=== PATIENT | male | born 1970 | race Caucasian/White ===

== ENCOUNTER 2025-05-20 19:34 | Inpatient (IN) | payer OTHER, SELFPAY ==
[2025-05-20] VITALS (9 sets, daily range): BP systolic 98–121; BP diastolic 60–84; PULSE 106–126; RESP 18–24; TEMP 36.5–38.7; O2SAT 95–97; BMI 30.9
--- NOTE | ~2025-05-20 | XR_ITS ---
CLINICAL HISTORY: pain 2 view chest x-ray Comparison: None provided Findings: No consolidation or effusion. Normal size heart. No acute fracture. IMPRESSION: 1. No acute findings. This document has been electronically signed by: Alvarado Cunha MD on 05/20/2025 21:21:01
--- NOTE | ~2025-05-20 | CT_ITS ---
CLINICAL HISTORY: hematuria, uti r o bladder mass, known prostate ca CT abdomen and pelvis with contrast Comparison: None provided Findings: Linear atelectasis at lung bases. The gallbladder and solid organs are within normal limits. No renal stones. No bowel obstruction, pneumoperitoneum, or pneumatosis. Moderate stool. Mesenteric vessels patent. Numerous small lymph nodes throughout the retroperitoneum. Small left inguinal hernia contains fat without induration. Prostatomegaly. Partially decompressed urinary bladder is unremarkable with no urothelial lesions. Normal appendix. No acute fractures or pathologic bone lesions. Left iliac crest bone excrescence, likely sequela of a prior injury. Mild to moderate lumbar degenerative spondylosis most evident L4-S1. IMPRESSION: 1. Multiple small retroperitoneal lymph nodes are nonspecific. These could be benign or malignant given the history of prostate cancer. 2. Prostatomegaly with unremarkable partially decompressed urinary bladder. 3. Small left inguinal hernia contains fat without induration. This document has been electronically signed by: Nava Marroquin MD on 05/20/2025 23:54:47
--- NOTE | 2025-05-20 19:43 | ED.GENADULT ---
HPI - General Adult General Chief complaint: Urogenital-Male Stated complaint: abn labs from [facility] Time Seen by Provider: 05/20/25 20:57 Source: patient and family Mode of arrival: ambulatory Limitations: no limitations History of Present Illness ED Provider: Dr. Elif Kendall HPI narrative: Patient comes to the emergency room complaining of hematuria and feeling weak. Patient states that last time he had very violent chills. According to the patient, his they have [id number] UTI test strips and it was positive. They went to urgent care, and due to the hematuria, there was sent to the emergency room. Patient states that he does have history of prostate cancer. Patient has not started any treatment yet. Patient unaware of any other urologic conditions. Patient states it is the 1st time that he has blood in the urine. Patient denies abdominal pain flank pain. Related Data Allergies Allergy/AdvReac Type Severity Reaction Status Date / Time No Known Allergies Allergy Verified 05/20/25 19:46 Review of Systems Review of Systems: Constitutional : No Weight loss, complaining of fever and chills No Night Sweats, No Fatigue, No Malaise ENT/Mouth : No Hearing loss, No Ear Pain, No Nasal Congestion, No Sinus Pain, No Hoarseness, No sore throat, No Rhinorrhea, No Swallowing Difficulty Eyes: No Eye Pain, No Swelling, No Redness, No Foreign Body, No Discharge, No Vision Changes Cardiovascular : No Chest Pain, No SOB, No Dyspnea on Exertion, No Orthopnea, No Edema, No Palpitations Respiratory : No Cough, No Sputum, No Wheezing, No Smoke Exposure, No Dyspnea Gastrointestinal : No Nausea, No Vomiting, No Diarrhea, No Constipation, No abdominal Pain, No Hematochezia, No Melena Genitourinary : no irregular bleeding, No Dysuria, No Urinary Frequency, complaining of Hematuria, No Urinary Incontinence, complaining of Urgency, No Flank Pain, No Urinary Flow Changes, No Hesitancy Musculoskeletal : No joint pain, No Myalgias, No Joint Swelling Skin : No Skin Lesions, No rash Neuro : No Weakness, No Numbness, No Paresthesias, No Loss of Consciousness, No Dizziness, No Headache Psych : No Anxiety/Panic, No Depression, No SI/HI/AH/VH, No Social Issues, Heme/Lymph: No Bruising, No Bleeding,No Lymphadenopathy Endocrine : No Polyuria, No Polydipsia, No Temperature Intolerance [facility] Past Medical History Medical History (Updated 05/21/25 @ 00:15 by Elif Kendall MD) Prostate cancer Social History Social History Smoked in Last 30 Days: No Use of substances other than those prescribed or required for medical reasons: No Advance Directives: No Advance Directives Information Provided: No Physical Exam ED Exam Exam: Appearance: Alert. Oriented X3. No acute distress. Eyes: Pupils equal, round and reactive to light. ENT: Pharynx normal. Neck: Normal inspection. Neck supple. No lymph nodes noted. No crepitus CVS: Normal heart rate and rhythm. Pulses normal. Normal S1 and S2 Respiratory: No respiratory distress. Breath sounds normal. No Wheezing. No rales Abdomen: Soft and nontender. No rigidity. No distention. No CVA tenderness Skin: Skin warm and dry. Normal skin color. Normal skin turgor. Extremities: No lower extremity edema. No Lacerations. No Rash Neuro: Oriented X 3. No motor deficit. No sensory deficit. Moving all extremities. No slurred speech. CN 2 through 12 grossly intact Psych: calm, cooperative, normal affect Vital Signs: Vital Signs - 24 hr 05/20/25 19:42 05/20/25 21:07 05/20/25 21:13 Temperature 98.2 F 101.7 F H Pulse Rate 126 H 118 H Pulse Rate [Automated] 112 H Respiratory Rate 18 24 H Blood Pressure 114/84 121/82 Pulse Oximetry 97 96 Oxygen Delivery Method Room Air Room Air 05/20/25 21:48 05/20/25 22:24 05/20/25 22:51 Temperature 100.0 F 98.3 F Pulse Rate 108 H 106 H Pulse Rate [Automated] Respiratory Rate 22 H 20 Blood Pressure 121/82 98/60 Pulse Oximetry 96 97 Oxygen Delivery Method Room Air Room Air 05/20/25 23:05 05/20/25 23:09 05/20/25 23:46 Temperature 97.7 F Pulse Rate 106 H Pulse Rate [Automated] Respiratory Rate 20 Blood Pressure 108/62 111/72 117/74 Pulse Oximetry 95 95 Oxygen Delivery Method Room Air Room Air BMI result Body Mass Index 30.9 Course Course Course Narrative: RME, this is a rapid medical exam performed by Jesus Manuel Jain please refer to primary provider for complete H&P- 55 year old male with history of diabetes, prostate cancer presents for evaluation of chills starting last night, body aches, fatigue, abdominal pain, urinary retention. He reports he has been peeing frequently but only little bit at a time. He has not had any documented fevers. He went to urgent care today and was sent here. His heart rate is as high as 130. Blood pressure was 114/84, in triage she has temp was 98.2? orally. Plan for labs, urinalysis, bladder scan Medications Administered Discontinued Medications Generic Name Dose Route Start Last Admin Trade Name Lisa PRN Reason Stop Dose Admin Acetaminophen 975 mg 05/20/25 21:21 05/20/25 21:45 Acetaminophen 325 Mg Tablet PO 05/20/25 21:22 975 mg ONCE ONE Administration Sodium Chloride 3,018 mls @ 3,018 mls/hr 05/20/25 20:50 05/20/25 22:30 Ns 30 ml/kg infuse over 1 hr (3018 ml) 05/20/25 21:49 Infused IV Infusion .Q1H STA Levofloxacin 500 mg in 100 mls @ 100 mls/hr 05/20/25 20:57 05/20/25 22:03 Levaquin IV 05/20/25 21:56 Infused ONCE ONE Infusion Iohexol 85 ml 05/20/25 23:21 05/20/25 23:22 Iohexol 350 Mg/Ml 100 Ml Infus..Btl IV 05/20/25 23:22 85 ml ONCE ONE Administration Medical Decision Making Medical Decision Making MDM Narrative: I was informed by the patient's nurse that the patient has been brought to the main ED, patient's white blood cell count in the 30s, patient known to have a UTI. Patient's nurse to started the sepsis protocol a few minutes ago at 20:52 Patient's nurse started IV fluids based on actual weight No patient receiving antibiotics. My interpretation of labs: Patient's white blood cell count 34.5, chemistry does not show any acute electrolyte abnormality. Glucose 227, lactic acid 2.8, lipase normal, normal LFTs Urine is positive for UTI Serology negative for COVID and influenza On physical exam, patient does not have any flank pain or back pain CT scan of the abdomen pelvis shows small retroperitoneal lymph nodes, nonspecific, benign versus malignant given the history of prostate cancer. No obstruction FOCUS exam performed at 22:52 I discussed the patient with Dr. Bimringham, patient being admitted Differential Diagnosis Differential Diagnoses: The differential diagnosis associated with the presentation includes (Bladder malignancy, UTI, pyelonephritis) Admission/Observation Consideration of admission/observation: Escalation of care including admission/observation considered Consult Healthcare Provider Management of the patient was discussed with: Hospitalist Lab Data MDM Lab Attestation statement: I reviewed the patient's lab results. 05/20/25 20:26 05/20/25 20:26 Labs: Lab Results 05/20/25 05/20/25 Range/Units 20:26 22:39 WBC 34.5 H* (4.8-10.8) X10*3/uL RBC 5.16 (4.60-5.80) X10*6/uL Hgb 15.1 (14.0-18.0) g/dl Hct 44.1 (42.0-52.0) % MCV 85.5 (80.0-98.0) fL MCH 29.3 (27.0-33.0) pg MCHC 34.2 (31.0-36.0) g/dl RDW 12.5 (11.0-16.0) % Plt Count 223 (160-400) X10*3/uL MPV 9.2 L (9.4-12.4) fL Immature Gran % (Auto) 1.2 H (0.0-0.4) % Neut % (Auto) 87.2 H (45-73) % Lymph % (Auto) 3.5 L (20-40) % [place] % (Auto) 7.8 (2-11) % Eos % (Auto) 0.0 (0-4) % Baso % (Auto) 0.3 (0-2) % Lymph # (Auto) 1.2 (1.2-4.9) X10*3/uL [place] # (Auto) 2.7 H (0.1-1.2) X10*3/uL Eos # (Auto) 0.0 (0.0-0.4) X10*3/uL Baso # (Auto) 0.1 (0.0-0.2) X10*3/uL Abs Immat Gran (auto) 0.40 H (0.00-0.03) X10*3/uL Absolute Neuts (auto) 30.1 H (2.0-8.3) x10*3/uL Absolute Nucleated RBC 0.000 (0.0-0.012) X10*3/uL Nucleated RBC % (auto) 0.0 (0.0-0.2) /100WBC Sodium 135 (135-145) mmol/L Potassium 4.1 (3.3-5.1) mmol/L Chloride 102 (96-108) mmol/L Carbon Dioxide 23 (22-29) mmol/L Anion Gap 14 (12-20) BUN 16 (9-16) mg/dL Creatinine 0.96 (0.5-1.4) mg/dL Estim Creat Clear Calc 102.5 Estimated GFR > 60 Random Glucose 227 H (60-115) mg/dL Lactic Acid 2.8 H* (0.5-2.0) mmol/L Lactic Acid F/U @ 2Hr 3.1 H* (0.5-2.0) mmol/L Calcium 9.4 (8.4-10.2) mg/dL Total Bilirubin 0.7 (0.0-1.0) mg/dL AST 25 (5-37) U/L ALT 49 H (0-40) U/L Alkaline Phosphatase 62 (39-117) U/L Total Protein 7.4 (6.5-8.0) g/dL Albumin 4.6 (3.5-5.0) g/dL Lipase 19 (8-78) U/L Urine Color Dark Yellow Urine Appearance Cloudy Urine pH 5.5 (5.0-9.0) Ur Specific [place] >= 1.030 H (1.005-1.025) Urine Protein 100 (2+) H (Neg-Trace) mg/dL Urine Glucose (UA) 250 H (Negative) mg/dL Urine Ketones Trace (Negative) mg/dL Urine Blood Large (3+) H (Negative) Urine Nitrite Positive H (Negative) Ur Leukocyte Esterase Moderate (2+) H (Negative) Urine RBC 11-20 H (0-2) /HPF Urine WBC >50 H (0-5) /HPF Ur Squamous Epith Cells 0-2 (0-2) /HPF Urine Bacteria 4+ (None Seen) Hyaline Casts 0-2 (0-2) /LPF COVID-19 (ALIVIA) Negative (Negative) COVID-19 Clin Com See Note Influenza Type A (BUFFY) Negative (Negative) Influenza Type B (BUFFY) Negative (Negative) Influenza A & B Note N Independent Interpretation I performed an independent interpretation of an: CT Scan Radiology Impression Discussion of test interpretation with radiology: I have reviewed the radiologist's reading. Radiologist Impression: Findings: Linear atelectasis at lung bases. The gallbladder and solid organs are within normal limits. No renal stones. No bowel obstruction, pneumoperitoneum, or pneumatosis. Moderate stool. Mesenteric vessels patent. Numerous small lymph nodes throughout the retroperitoneum. Small left inguinal hernia contains fat without induration. Prostatomegaly. Partially decompressed urinary bladder is unremarkable with no urothelial lesions. Normal appendix. No acute fractures or pathologic bone lesions. Left iliac crest bone excrescence, likely sequela of a prior injury. Mild to moderate lumbar degenerative spondylosis most evident L4-S1. IMPRESSION: 1. Multiple small retroperitoneal lymph nodes are nonspecific. These could be benign or malignant given the history of prostate cancer. 2. Prostatomegaly with unremarkable partially decompressed urinary bladder. 3. Small left inguinal hernia contains fat without induratio Independent Historian Clinical information obtained from an independent historian. History obtained from or confirmed by: Spouse Chronic Conditions Patient?s care impacted by: Other (Prostate cancer) Critical Care Time Critical Care Time Critical Care Time: Yes Total Critical Care Time: 60 Attestation: I have personally provided critical care time. Time includes review of lab data, radiology results, discussion with consultants, and monitoring for potential decompensation. Intervention performed as documented. Discharge Plan Discharge Clinical Impression: Sepsis secondary to UTI Patient Disposition: Admitted As Inpatient Print Language: Malay
--- NOTE | 2025-05-20 19:47 | ECG_ITS ---
Test Reason : TACHY Blood Pressure : */* mmHG Vent. Rate : 128 BPM Atrial Rate : 128 BPM P-R Int : 166 ms QRS Dur : 70 ms QT Int : 266 ms P-R-T Axes : 57 115 55 degrees QTcB Int : 388 ms Sinus tachycardia Right axis deviation Nonspecific ST abnormality Abnormal ECG No previous ECGs available Referred By: Ham Jain Electronically Signed By: LEDY WOO MD
[2025-05-20 20:35] LABS: MANUAL DIFF FLAG NO
[2025-05-20 20:37] LABS: Hematocrit 44.1 % (42.0-52.0); Hemoglobin 15.1 g/dl (14.0-18.0); Imm Gran Abs Auto 0.40 X10*3/uL (0.00-0.03); Imm Gran Pct Auto 1.2 % (0.0-0.4); Lymphocytes Absolute Auto 1.2 X10*3/uL (1.2-4.9); Mean Corpuscular HGB Conc 34.2 g/dl (31.0-36.0); Mean Corpuscular Hemoglobin 29.3 pg (27.0-33.0); Mean Corpuscular Volume 85.5 fL (80.0-98.0); NRBC Abs Auto 0.000 X10*3/uL (0.0-0.012); NRBC Pct Auto 0.0 /100WBC (0.0-0.2); Platelet Count 223 X10*3/uL (160-400); Red Blood Count 5.16 X10*6/uL (4.60-5.80); SCAN SMEAR FLAG 1
[2025-05-20 20:38] LABS: Appearance Urine Cloudy; Glucose Urine UA 250 mg/dL (Negative); PH 5.5 (5.0-9.0); Specific Gravity - Urine >= 1.030 (1.005-1.025); UMIC TRIGGER UACC YES
[2025-05-20 20:39] LABS: White Blood Count 34.5 X10*3/uL (4.8-10.8)
[2025-05-20 20:41] LABS: UACC Culture Trigger YES
[2025-05-20 20:53] LABS: COVID-19 Test Negative (Negative); IDNOW Serial# 55D5AD1C
[2025-05-20 20:54] LABS: IDNOW Serial# 58CA691E; Influenza A & B2 Note N; Influenza B2 Negative (Negative)
[2025-05-20 20:58] LABS: Alanine Aminotransferase 49 U/L (0-40); Albumin Level 4.6 g/dL (3.5-5.0); Alkaline Phosphatase 62 U/L (39-117); Anion Gap 14 (12-20); Aspartate Amino Transferase 25 U/L (5-37); Blood Urea Nitrogen 16 mg/dL (9-16); Calcium 9.4 mg/dL (8.4-10.2); Carbon Dioxide 23 mmol/L (22-29); Chloride 102 mmol/L (96-108); Creatinine Clr Calc Pharmacy 102.5; Estimated Glomerular Filt Rate > 60; Lipase 19 U/L (8-78); Potassium 4.1 mmol/L (3.3-5.1); Sodium 135 mmol/L (135-145); Total Protein 7.4 g/dL (6.5-8.0)
[2025-05-20] MEDS: SODIUM CHLORIDE 3018 ML IV (21:00)
--- NOTE | 2025-05-20 21:16 | HO.NURTONUR ---
Pt c/o sudden onset chills last night assoc w/ diff urination, went to Urgent for eval and was told he had a urinary infection and sent to ED for eval. Pt arrived, sat in WR for approx 1 hour, pt presented as sepsis @ 2048. Pt was found to be tachy and febrile w/ wbc>34 and initial lactate 2.8. Pt denies any c/o n/v/d and is independent w/ ADL's
--- OUTSIDE RECORDS SUMMARY | 2025-05-20 21:50 | XMS_ITS ---
[facility] Name [facility] Care Team Organization Name Specialty Phone Email Start Date End Da te [facility] DONAL RUST Primary Care 06/07/2022 4
--- OUTSIDE RECORDS SUMMARY | 2025-05-20 21:50 | XMS_ITS | Clinical Summary ---
Author Organization [facility] [address] [place] [address] [place] [phone] Phone Care Team Providers Care Stereotype Caster Name Role Phone Toro Holman MD Primary Care Provider [phone] Allergies No known active allergies Medications blood sugar diagnostic (FreeStyle Lite Strips) test strip Test tid 01/13/2023 Active blood-glucose meter kit Test tid 01/13/2023 Active FREESTYLE LANCETS MISC Test tid 01/13/2023 Active tadalafiL (CIALIS) 20 mg tablet Take 1 tablet (20 mg total) by mouth. 02/25/2021 Active sildenafiL (VIAGRA) 100 mg tablet Take 1 tablet (100 mg total) by mouth if needed for erectile dysfunction. 10/19/2020 Active metFORMIN (GLUCOPHAGE) 500 mg tablet Take 2 tablets (1,000 mg total) by mouth 2 (two) times a day with meals. 360 tablet 1 11/11/2024 Active celecoxib (CeleBREX) 200 mg capsule Take 1 capsule (200 mg total) by mouth 2 (two) times a day. Active semaglutide (OZEMPIC) 0.25 mg or 0.5 mg (2 mg/3 mL) injection penIndications: Type 2 diabetes mellitus with other specified complication, without long-term current use of insulin ([facility] V24, [facility] V28) Inject 0.5 mg under the skin every 7 (seven) days. 6 mL 1 03/11/2025 Active Active Problems Problem Noted Date Diagnosed Date Primary osteoarthritis of right knee 06/01/2018 Controlled type 2 diabetes m ellitus without complication, without long-term current use of insulin ([facility] V24, [facility] V28) 03/05/2018 Essential hypertension 10/05/2017 Primary osteoarthritis of both knees 08/04/2017 Overview (05/16/2024): Last Assessment & Plan: Depo Medrol 80 mg injection to bilateral knees on August 04, 2017 Hyperlipidemia 10/06/2015 Cervicalgia 07/08/2010 Displacement of cervical int ervertebral disc without myelopathy 07/08/2010 Radiculitis, cervical 07/08/2010 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 Overview (05/16/2024): IMO update Encounters Date Type Department Care Team Description 03/11/2025 5:00 PM EDT Office Visit Adult Medicine [address] [phone] Shy Carlin PA Hyperlipidemia, unspecified hyperlipidemia type (Primary Dx); Type 2 diabetes mellitus with other specified complication, without long-term current use of insulin ([facility] V24, [facility] V28); Prostate cancer ([facility] V24, [facility] V28) from Last 3 Months Immunizations Immunization Administration Dates Next Due Pneumococcal polysaccharide 23 valent (Pneumovax 23) 2yo and older 03/05/2018 Td Tetanus diptheria (Tdvax) 7yo and older 12/29 Tdap Tetanus diptheria acell ular pertussis (Boostrix; Adacel) 7yo and older 01/13/2023,06/09/2011 Surgical History Surgery Date Site/Laterality Comments FLEXIBLE SIGMOIDOSCOPY 05/26/08 PROCEDURE: MO SIGMOIDOSCOPY FLX DX W/COLLJ SPEC BR/WA IF PFRMD; COMMENT: hemorrhoids Medical History Medical History Date Comments Psychosexual dysfunction, unspecified 04/13/2006 DX:Psychosexual dysfunction, unspecified Radiculitis, cervical 07/08/2010 DX:Radicul itis, cervical Displacement of cervical intervertebral disc without myelopathy 07/08/2010 DX:Displacement of cervical intervertebral disc without myelopathy Cervicalgia 07/08/2010 DX:Cervicalgia Type II diabetes mellitus, uncontrolled 10/06/2015 DX:Type II diabetes mellitus , uncontrolled Hyperlipidemia 10/06/2015 DX:Hyperlipidemi a Essential hypertension 10/05/2017 DX:Essent ial hypertension Actinic keratosis, hx of DX:Acti kerri keratosis, hx of Family History Medical History Relation Name Comments Hypertension Brother Colon cancer Father Stroke Mother's side Blindness Neg Hx Cataracts Neg Hx Glaucoma Neg Hx Macular degeneration Neg Hx Strabismus Neg Hx Relation Name Status Comments Brother Father Mother's side Social History Tobacco Use Types Packs/Day Years Used Date Smoking Tobacco: Former Cigarettes Q uit: 10/14/2013 Smokeless Tobacco: Current Tobacco Cessation:Ready to Q uit: Not Asked; Counseling Given: Not Answered Alcohol Use Standard Drinks/Week Comments No 0 (1 standard drink = 0.6 oz pur e alcohol) Housing Instability Answer Date Recorde d Are you worried that in the next 2 months you may not have stable housing? No 09/13/2024 Food Access & Nutrition Answer Date Rec orded Do you have access to a vari ety of food including fruits and vegetables? Yes 09/13/2024 Access to Healthcare Answer Date Record ed Within the last 3 months, jaquan shin many times did you visit the emergency department for your medical care? 0 09/13/2024 Health Literacy Answer Date Recorded How often do you need to hav e someone help you when you read instructions, pamphlets, or other written material from your doctor or pharmacy? Never 09/13/2024 Caregiver: How often do you need to have someone help you when you read instructions, pamphlets, or other written material from your doctor or pharmacy? Not on file 09/13/2024 Financial Risk Answer Date Recorded How hard is it for you to pa y for the very basics like food, housing, medical care, and air conditioning / heating? Not very hard 09/13/2024 Transportation Answer Date Recorded Has the lack of transportati on kept you from meetings, work, or from getting things needed for daily living? No Has the lack of transportati on kept you from medical appointments or from getting medications? No 09/13/2024 Social Isolation Answer Date Recorded How often do you feel lonely or isolated from th ose around you? Never 09/13/2024 Food Risk Answer Date Recorded Within the past 12 months we worried whether our food would run out before we got money to buy more. Never true 09/13/2024 Within the past 12 months th e food we bought just didn't last and we didn't have money to get more. Never true 09/13/2024 Dependent Care Answer Date Recorded Do you need help finding or paying for care for your loved ones. For example, child care lead teacher or elderly care for an older adult? No 09/13/2024 Education Answer Date Recorded Do you think completing more education or training, like finishing a GED, going to college, or learning a trade, would be helpful for you? No 09/13/2024 Employment and Income Answer Date Recor ded During the last four weeks, have you been actively looking for work? No 09/13/2024 Living Situation Answer Date Recorded What is your living situation? 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 Not on file Not on file Obstetrics History Last Filed Vital Signs Vital Sign Reading Time Taken Comments Blood Pressure 110/74 03/11/2025 4:39 PM EDT Pulse 96 03/11/2025 4:39 PM EDT Temperature 35.9 C (96.7 F) 03/11/2025 4:39 PM EDT Respiratory Rate 16 03/11/2025 4:39 PM EDT Oxygen Saturation 95% 03/11/2025 4:39 PM EDT Inhaled Oxygen Concentration - - Weight 103 kg (226 lb 1.6 oz) 03/11/2025 4:39 PM EDT Height 180.3 cm (5' 10.98 ) 03/11/2025 4:39 PM E DT Body Mass Index 31.55 03/11/2025 4:39 PM EDT Plan of Treatment Upcoming Encounters Date Type Department Care Team (Late st Contact Info) Description 09/16/2025 5:00 PM EST Office Visit Adult Medicine [address] [phone] Shy Carlin PA [address] [place] [address] Health Maintenance Due Date Last Done Comments Diabetes: Annual Retina Eye Exam 01/26/1978 Hepatitis B Vaccines (1 of 3 - 19+ 3-dose series) 01/26/1987 Zoster Vaccines (1 of 2) 01/26/1987 Pneumococcal Vaccine: 50+ Years (2 of 2 - PCV) 03/05/2019 03/05/2018 HIV Screening 06/29/2022 Diabetes: Annual Urine Albumin-Creatinine Ratio (uACR) 01/11/2024 01/10/2023 COVID-19 Vaccine ( season) 2025 12/21/2021, 10/10/2020, 09/12/2020 Diabetes: Blood Sugar Control Test (HGBA1C) 04/17/2025 10/15/2024, 05/05/2023 Diabetes: Annual Foot Exam 09/10/2025 09/10/2024 Social Influencers of Health Screening 09/13/2025 09/13/2024, 09/10/2024 Diabetes: Annual GFR (Glomerular Filtration Rate) 10/15/2025 10/15/2024, 01/10/2023 Hypertension/CHF/CAD Annual BMP Blood Test 10/15/2025 10/15/2024, 01/10/2023 Cholesterol Screening (Lipid Panel) 10/15/2029 10/15/2024, 01/10/2023 DTaP,Tdap,and Td Vaccines (5 - Td or Tdap) 01/13/2033 01/13/2023, 08/26/2022, 06/09/2011, Additional history exists Colorectal Cancer Screening: Colonoscopy 12/18/2033 12/19/2023 RSV Immunization Adult Patients (1 - 1-dose 75+ series) 01/26/2043 Hepatitis C Screening Completed 10/05/2015 Depression Screening Completed 09/13/2024 HIB Vaccines Aged Out No longer eligi ble based on patient's age to complete this topic HPV Vaccines Aged Out No longer eligi ble based on patient's age to complete this topic Hepatitis A Vaccines Aged Out No long er eligible based on patient's age to complete this topic IPV Vaccines Aged Out No longer eligi ble based on patient's age to complete this topic Influenza Vaccine Discontinued MMR Vaccines Aged Out No longer eligi ble based on patient's age to complete this topic Meningococcal ACWY Vaccine Aged Out N o longer eligible based on patient's age to complete this topic Meningococcal B Vaccine Aged Out No l onger eligible based on patient's age to complete this topic RSV Immunization Patients Under 20 months Aged Out No longer eligible based on patient's age to complete this topic Varicella Vaccines Aged Out No longer eligible based on patient's age to complete this topic Procedures Procedure Name Priority Date/Time Associated Diagnosis Comments BASIC METABOLIC PANEL Routine 10/15/2024 2:49 PM EDT Routine history and physical examination of adult HEMOGLOBIN A1C Routine 10/15/2024 2:49 PM EDT Controlled type 2 diabetes mellitus without complication, without long-term current use of insulin ([facility] V24, [facility] V28) LIPID PANEL WITH REFLEX TO DIRECT LDL Routine 10/15/2024 2:49 PM EDT Routine history and physical examination of adult Hyperlipidemia, unspecified hyperlipidemia type COLONOSCOPY Routine 12/19/2023 URINE ALBUMIN CREATININE RATIO Routine 01/10/2023 HEPATITIS C SCREENING Routine 10/05/2015 from Last 3 Months or Most Recently Relevant to Health Maintenance Results * (ABNORMAL) Lipid panel with reflex to direct LDL (10/15/2024 2:49 PM EDT) Cholesterol 205(H) 0 - 200 mg/dL LAB CHEMISTRY METHOD 10/15/2024 6:[address] [facility] Triglycerides 487(H) 0 - 150 mg/dL LAB CHEMISTRY METHOD 10/15/2024 6:[address] [facility] HDL 29(L) >=40 mg/dL LAB CHEMISTRY METHOD 10/15/2024 6:[address] [facility] LDL Calculated 79 0 - 100 mg/dL LAB CHEMISTRY METHOD 10/15/2024 6:[address] [facility] Comment:Unable to calculate when triglycerides >400 mg/dL. VLDL Cholesterol Keanu 97.4 mg/dL LAB CHEMISTRY METHOD 10/15/2024 6:[address] [facility] Comment:Unable to calculate when triglycerides >400 mg/dL. Non HDL Chol. (LDL+VLDL) 176(H) <145 mg/dL LAB CHEMISTRY METHOD 10/15/2024 6:[address] [facility] Comment:Unable to calculate when triglycerides >400 mg/dL. Chol/HDL Ratio 7.1(H) 0.0 - 4.4 LAB CHEMISTRY METHOD 10/15/2024 6:[address] [facility] Blood Venous blood specimen / Unknown Venipuncture / Unknown 10/15/2024 2:49 PM EDT 10/15/2024 2:49 PM EDT Shy GUEVARA LAB BLOOD ORDERABLES Fi nal Result Performing Organization Address City/[facility]/ZIP Co de Phone Number [facility] [address] [place] [address], [place] [phone] * (ABNORMAL) Hemoglobin A1c (10/15/2024 2:49 PM EDT) [facility] Signature Hemoglobin A1C 9.6(H) <6.5 % LAB CHEMISTRY METHOD 10/15/2024 8:[address] [facility] Mean Bld Glu Estim. 229 mg/dL LAB CHEMISTRY METHOD 10/15/2024 8:[address] [facility] Blood Venous blood specimen / Unknown Venipuncture / Unknown 10/15/2024 2:49 PM EDT 10/15/2024 2:49 PM EDT Shy GUEVARA LAB BLOOD ORDERABLES Fi nal Result Performing Organization Address City/[facility]/ZIP Co de Phone Number [facility] [address] [place] [address], [place] [phone] * (ABNORMAL) Basic metabolic panel (10/15/2024 2:49 PM EDT) Sodium 132(L) 133 - 145 mmol/L LAB CHEMISTRY METHOD 10/15/2024 6:56 PM [facility] Potassium 4.2 3.5 - 5.5 mmol/L LAB CHEMISTRY METHOD 10/15/2024 6:56 PM [facility] Chloride 99 96 - 110 mmol/L LAB CHEMISTRY METHOD 10/15/2024 6:56 PM [facility] CO2 27 21 - 32 mmol/L LAB CHEMISTRY METHOD 10/15/2024 6:56 PM [facility] Anion Gap 6 3 - 11 LAB CHEMISTRY METHOD 10/15/2024 6:56 PM [facility] Glucose 243(H) 70 - 100 mg/dL LAB CHEMISTRY METHOD 10/15/2024 6:56 PM [facility] BUN 21 5 - 25 mg/dL LAB CHEMISTRY METHOD 10/15/2024 6:56 PM [facility] Creatinine 1.08 0.70 - 1.30 mg/dL LAB CHEMISTRY METHOD 10/15/2024 6:56 PM [facility] eGFR 81 >=60 mL/min/1. 73m2 LAB CHEMISTRY METHOD 10/15/2024 6:56 PM [facility] Comment:Calculation based on the Chronic Kidney Disease Epidemiology Collaboration (CKD-EPI) equation refit without adjustment for race. BUN/Creatinine Ratio 19.4 LAB CHEMISTRY METHOD 10/15/2024 6:56 PM [facility] Calcium 9.2 8.5 - 10.5 mg/dL LAB CHEMISTRY METHOD 10/15/2024 6:56 PM [facility] Blood Venous blood specimen / Unknown Venipuncture / Unknown 10/15/2024 2:49 PM EDT 10/15/2024 2:49 PM EDT Shy GUEVARA LAB BLOOD ORDERABLES Fi nal Result [facility] [address] [place] [address], * Colonoscopy (12/19/2023) Colonoscopy no interpretation , abstracted Anatomical Region Laterality Modality Other Historical Provider HEALTH MAINTENANCE Final Result * Urine Albumin Creatinine Ratio (01/10/2023) Urine Albumin Creatinine Ratio abstracted Historical Provider HEALTH MAINTENANCE Final Result * Hepatitis C Screening (10/05/2015) Pathologist [facility] Hepatitis C Screening abstracted Historical Provider HEALTH MAINTENANCE Final Result from Last 3 Months or Most Recently Relevant to Health Maintenance Insurance [facility] [address] [place] [address] Care Teams Stereotype Caster Relationship Specialty Start Date End Date Toro Holman MD PCP - General 11/22/1997
--- OUTSIDE RECORDS SUMMARY | 2025-05-20 21:50 | XMS_ITS | Encounter Summary ---
Author Organization [facility] Address [address] [place] [address] Care Team Providers Care Lapeler Name Role Phone Toro Holman MD Primary Care Provider [phone] Encounter Details Date Type Department Care Team (Late st Contact Info) Description 12/31/2024 Lab Requisition [facility] [address] [facility] [place] [address] Feliciano Fulton MD [address] [place] [address] Elevated prostate specific antigen (PSA) Social History Tobacco Use Types Packs/Day Years Used Date Smoking Tobacco: Former Cigarettes Q uit: 10/14/2013 Smokeless Tobacco: Current Alcohol Use Standard Drinks/Week Comments No 0 [...] Record ed Within the last 3 months, ho w many times did you visit the emergency [...] care for your loved ones. For example, children's zoo caretaker or elderly care for an older adult? 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 Prostate, Left Middle [place] (Core Biopsy): - BENIGN PROSTATE TISSUE. B. Prostate, Left Lateral [place] (Core Biopsy): -PROSTATIC ACINAR ADENOCARCINOMA, CONVENTIONAL (USUAL) TYPE -Nicholas score (3+3)=6, Grade group 1 Total Number of Cores: 1 Number of Positive Cores: 1 Percentage of Prostatic Tissue Continuously Involved by Tumor: <5% C. Prostate, Left Middle Middle (Core Biopsy): - BENIGN PROSTATE TISSUE. D. Prostate, Left Lateral Middle (Core Biopsy): -PROSTATIC ACINAR ADENOCARCINOMA, CONVENTIONAL (USUAL) TYPE -[place] score (3+3)=6, Grade group 1 Total Number of Cores: 1 Number of Positive Cores: 1 Percentage of Prostatic Tissue Continuously Involved by Tumor: 5% E. Prostate, Left Middle Base (Core Biopsy): - BENIGN PROSTATE TISSUE. F. Prostate, Left Lateral Base (Core Biopsy): - BENIGN PROSTATE TISSUE. G. Prostate, Right Middle [place] (Core Biopsy): -PROSTATIC ACINAR ADENOCARCINOMA, CONVENTIONAL (USUAL) TYPE -Nicholas score (3+3)=6, Grade group 1 Total Number of Cores: 1 Number of Positive Cores: 1 Percentage of Prostatic Tissue Continuously Involved by Tumor: 10% H. Prostate, Right Lateral [place] (Core Biopsy): -PROSTATIC ACINAR ADENOCARCINOMA, CONVENTIONAL (USUAL) TYPE -Nicholas score (3+3)=6, Grade group 1 Total Number of Cores: 1 Number of Positive Cores: 1 Percentage of Prostatic Tissue Continuously Involved by Tumor: 5% I. Prostate, Right Middle Middle (Core Biopsy): -PROSTATIC ACINAR ADENOCARCINOMA, CONVENTIONAL (USUAL) TYPE -[place] score (3+3)=6, Grade group 1 Total Number of Cores: 1 Number of Positive Cores: 1 Percentage of Prostatic Tissue Discontinuously Involved by Tumor: 40% J. Prostate, Right Lateral Middle (Core Biopsy): -PROSTATIC ACINAR ADENOCARCINOMA, CONVENTIONAL (USUAL) TYPE -Nicholas score (3+3)=6, Grade group 1 Total Number of Cores: 1 Number of Positive Cores: 1 Percentage of Prostatic Tissue Continuously Involved by Tumor: 10% K. Prostate, Right Middle Base (Core Biopsy): -PROSTATIC ACINAR ADENOCARCINOMA, CONVENTIONAL (USUAL) TYPE -[place] score (3+3)=6, Grade group 1 Total Number of Cores: 1 Number of Positive Cores: 1 Percentage of Prostatic Tissue Continuously Involved by Tumor: 10% L. Prostate, Right Lateral Base (Core Biopsy): -PROSTATIC ACINAR ADENOCARCINOMA, CONVENTIONAL (USUAL) TYPE -[place] score (3+3)=6, Grade group 1 Total Number of Cores: 1 Number of Positive Cores: 1 Percentage of Prostatic Tissue Continuously Involved by Tumor: 55% M. Prostate, Right Transition Zone Lesion (Core Biopsy): -PROSTATIC ACINAR ADENOCARCINOMA, CONVENTIONAL (USUAL) TYPE -[place] score (3+3)=6, Grade group 1 Total Number of Cores: 3 Number of Positive Cores: 3 Percentage of Prostatic Tissue Continuously Involved by Tumor: 40, 55, 75% 01/06/2025 9:13 AM [facility] Clinical Information Elevated PSA PSA: 10.5 (11/13/24) [id number] 01/06/2025 9:13 AM [facility]) [facility] Gross Description A. Prostate, Left Mid [place] Biopsy: Received, properly labeled, are two H and E stained slides and two unstained slides. B. Prostate, Left Lat [place] Biopsy: Received, properly labeled, are two H and E stained slides and two unstained slides. C. Prostate, Left Mid Mid Biopsy: Received, properly labeled, are two H and E stained slides and two unstained slides. D. Prostate, Left Lat Mid Biopsy: Received, properly labeled, are two H and E stained slides and two unstained slides. E. Prostate, Left Mid Base Biopsy: Received, properly labeled, are two H and E stained slides and two unstained slides. F. Prostate, Left Lat Base Biopsy: Received, properly labeled, are two H and E stained slides and two unstained slides. G. Prostate, Right Mid [place] Biopsy: Received, properly labeled, are two H and E stained slides and two unstained slides. H. Prostate, Right Lat [place] Biopsy: Received, properly labeled, are two H and E stained slides and two unstained slides. I. Prostate, Right Mid Mid Biopsy: Received, properly labeled, are two H and E stained slides and two unstained slides. J. Prostate, Right Lat Mid Biopsy: Received, properly labeled, are two H and E stained slides and two unstained slides. K. Prostate, Right Mid Base Biopsy: Received, properly labeled, are two H and E stained slides and two unstained slides. L. Prostate, Right Lat Base Biopsy: Received, properly labeled, are two H and E stained slides and two unstained slides. M. Prostate, Right Transition Zone Lesion Biopsy: Received, properly labeled, are two H and E stained slides and two unstained slides. /al 01/06/2025 9:[address] [facility] Disclaimer Unless otherwise specified, all tissue is 10% NB formalin fixed and paraffin embedded. Technical pathology services provided by [facility] at [address] [place] [address] [address], [place] [address] (CLIA #[id number]/Louisa Hatfield MD, Clay Artisan) 01/06/2025 9:[address] [facility] Tissue Prostate / Unknown 12/31/20242024 3:13 PM EDT Tissue specimen (specimen) Prostate / Unknown 12/31/2024 12/31/2024 3: 17 PM EDT Tissue specimen (specimen) Prostate / Unknown 12/31/2024 12/31/2024 3: 17 PM EDT Tissue specimen (specimen) Prostate / Unknown 12/31/2024 12/31/2024 3: 17 PM EDT Tissue specimen (specimen) Prostate / Unknown 12/31/2024 12/31/2024 3: 17 PM EDT Tissue specimen (specimen) Prostate / Unknown 12/31/2024 12/31/2024 3: 17 PM EDT Tissue specimen (specimen) Prostate / Unknown 12/31/2024 12/31/2024 3: 17 PM EDT Tissue specimen (specimen) Prostate / Unknown 12/31/2024 12/31/2024 3: 17 PM EDT Tissue specimen (specimen) Prostate / Unknown 12/31/2024 12/31/2024 3: 17 PM EDT Tissue specimen (specimen) Prostate / Unknown 12/31/2024 12/31/2024 3: 17 PM EDT Tissue specimen (specimen) Prostate / Unknown 12/31/2024 12/31/2024 3: 17 PM EDT Tissue specimen (specimen) Prostate / Unknown 12/31/2024 12/31/2024 3: 17 PM EDT Tissue specimen (specimen) Prostate / Unknown 12/31/2024 12/31/2024 3: 17 PM EDT Feliciano Fulton MD LAB PATHOLOGY ORDERABLES Final Result [facility] ([facility] [[email or web address] [address] [place] [address], documented in this encounter Visit Diagnoses Diagnosis Elevated prostate specific antigen (PSA) documented in this encounter Additional Health Concerns Assessment Noted Time PHQ-9 Depression Total Score: 1 09/13/19 25 2:41 PM EST documented as of this encounter Care Teams Lapeler Relationship Specialty Start Date End Date Toro Holman MD PCP - General 11/22/1997 documented as of this encounter
--- NOTE | 2025-05-20 22:17 | MHC.EDTECH ---
pt urinated 275mL of yellow urine via urinal
[2025-05-20 22:33] LABS: Reflex Lactate? Lactic Acid Added
[2025-05-20 23:08] LABS: ~Lactic Acid-LAB USE ONLY 3.1 mmol/L (0.5-2.0)
[2025-05-20] MEDS: iohexoL 350 MG/ML 100 ML INFUS..BTL 85 ML IV (23:22)
[2025-05-21] VITALS (9 sets, daily range): BP systolic 113–140; BP diastolic 66–83; PULSE 100–114; RESP 14–22; TEMP 36.8–38.4; O2SAT 95–98
[2025-05-21 00:43] LABS: Reflex Lactate? 2 Y
--- NOTE | 2025-05-21 00:51 | PM.IMHP ---
History of Present Illness Date of Service: 05/21/25 Attending physician on admission: Dawood Birmingham Chief Complaint: fever, urinary sx Patient is a 55-year-old male with a past medical history significant for type 2 diabetes and new diagnosis of prostate cancer, who presented to the ED due to fever, chills, urinary frequency and hematuria starting last night. He reports increased frequency of bowel movements but denies any diarrhea, abdominal pain or flank pain. He has had poor appetite, fatigue and body aches. He denies any chest pain, shortness of breath, nausea or vomiting. He was diagnosed with prostate cancer back in December and reports it is low-grade and he is scheduled for a consultation for prostatectomy this May. He denies any rectal pain or lower abdominal pain. Review of Systems Constitutional: Constitutional: Reports body ache(s), Reports chills, Reports fatigue, Reports fever(s) and Reports poor appetite Eyes: Eyes: Denies change in vision ENT: Denies nasal congestion and Denies sore throat Cardiovascular: Cardiovascular: Denies chest pain, Denies rapid heart rate, Denies leg edema, Denies lightheadedness and Denies dyspnea Respiratory: Respiratory: Denies chest congestion, Denies cough, Denies dyspnea and Denies wheezing Gastrointestinal: Gastrointestinal: Denies abdominal pain, Denies nausea and Denies vomiting Genitourinary: Genitourinary: Reports as per HPI Musculoskeletal: Musculoskeletal: Denies back pain and Reports myalgias Integumentary/Breasts: Skin/Breast: Denies rash Neurologic: Denies confusion Psychiatric: Psychiatric: Denies confusion Endocrine: Endocrine: Reports fatigue Hematologic/Lymphatic: Hematologic/Lymphatic: Denies easy bleeding and Denies easy bruising Allergic/Immunologic: Allergic/Immunologic: Denies wheezing [facility], [facility] Medical History (Updated 05/21/25 @ 01:01 by Linda Magaña PA-C) Prostate cancer Functional capacity: independent ambulation Social History Smoked in Last 30 Days: No Use of substances other than those prescribed or required for medical reasons: No Advance Directives: No Advance Directives Information Provided: No Narrative: no smoking, etoh or drug use Meds Allergies Allergy/AdvReac Type Severity Reaction Status Date / Time No Known Allergies Allergy Verified 05/20/25 19:46 Active Medications: Current Medications Acetaminophen (Acetaminophen 325 Mg Tablet) 975 mg PO Q6H PRN PRN Reason: Pain, Mild 1-3,fever,headache Calcium Carbonate (Calcium Carbonate 750 Mg Tab.Chew) 750 mg PO Q4H PRN PRN Reason: Heartburn Dextrose (Dextrose 50 % 25 Gm/50 Ml Syringe) 25 gm IVPUSH Q15M PRN; Protocol PRN Reason: per Hypoglycemia Standing Ord. Enoxaparin Sodium (Enoxaparin Sodium 40 Mg/0.4 Ml Syringe) 40 mg SUBCUT Q24H [facility] Glucose (Glucose Gel 15 Gm Gel..Gram.) 15 gm PO Q15M PRN; Protocol PRN Reason: per Hypoglycemia Standing Ord. Levofloxacin (Levaquin) 500 mg in 100 mls @ 100 mls/hr IV Q24H [facility] Insulin Human Lispro (Insulin Lispro 100 Unit/Ml 3 Ml Vial) 0 unit SUBCUT QIDACHS [facility]; Protocol Magnesium Hydroxide (Milk Of Magnesia 30 Ml Oral.Susp) 30 ml PO DAILY PRN PRN Reason: Constipation Melatonin (Melatonin 3 Mg Tablet) 6 mg PO BEDTIME PRN PRN Reason: Insomnia Ondansetron HCl (Ondansetron Hcl 4 Mg/2 Ml Vial) 4 mg IVPUSH Q8H PRN PRN Reason: Nausea and Vomiting Oxycodone HCl (Oxycodone Hcl Immed Release 5 Mg Tablet) 5 mg PO Q6H PRN PRN Reason: Pain, Severe (Pain Scale 7-10) Sodium Chloride (0.9 % Sodium Chloride Flush 3 Ml Syringe) 3 ml IVFLUSH QSHIFT [facility]ADDIE Tramadol HCl (Tramadol Hcl 50 Mg Tablet) 50 mg PO Q6H PRN PRN Reason: Pain, Moderate(Pain Scale 4-6) Physical Exam Vital Signs and Narrative: Vital Signs: Last Vital Signs Temp 97.7 F 05/20/25 23:46 Pulse 106 H 05/20/25 23:46 Resp 20 05/20/25 23:46 BP 117/74 05/20/25 23:46 Pulse Ox 95 05/20/25 23:46 O2 Del Method Room Air 05/20/25 23:46 BMI result Body Mass Index 30.9 General: AOx3, no acute distress Resp: CTA bilaterally CVS: S1, S2, RRR GI: +BS, NT, no distention Skin: Warm, dry Neuro: Cranial nerves II-XII grossly intact bilaterally. Motor grossly intact bilaterally Extremities: No pitting edema Psych: Appropriate affect sepsis focused exam normal. normal capililary refill. Const: General: No confusion Orientation/consciousness: No confusion Neuro: General: No confusion Results Labs 05/20/25 20:26 05/20/25 20:26 Labs: Laboratory Results - last 24 hr 05/20/25 05/20/25 20:26 22:39 MCV 85.5 MCH 29.3 MCHC 34.2 RDW 12.5 Plt Count 223 MPV 9.2 L Immature Gran % (Auto) 1.2 H Neut % (Auto) 87.2 H Lymph % (Auto) 3.5 L [place] % (Auto) 7.8 Eos % (Auto) 0.0 Baso % (Auto) 0.3 Lymph # (Auto) 1.2 [place] # (Auto) 2.7 H Eos # (Auto) 0.0 Baso # (Auto) 0.1 Abs Immat Gran (auto) 0.40 H Absolute Neuts (auto) 30.1 H Absolute Nucleated RBC 0.000 Nucleated RBC % (auto) 0.0 Anion Gap 14 Estim Creat Clear Calc 102.5 Estimated GFR > 60 Random Glucose 227 H Lactic Acid 2.8 H* Lactic Acid F/U @ 2Hr 3.1 H* Calcium 9.4 Total Bilirubin 0.7 AST 25 ALT 49 H Alkaline Phosphatase 62 Total Protein 7.4 Albumin 4.6 Lipase 19 Urine Color Dark Yellow Urine Appearance Cloudy Urine pH 5.5 Ur Specific [place] >= 1.030 H Urine Protein 100 (2+) H Urine Glucose (UA) 250 H Urine Ketones Trace Urine Blood Large (3+) H Urine Nitrite Positive H Ur Leukocyte Esterase Moderate (2+) H Urine RBC 11-20 H Urine WBC >50 H Ur Squamous Epith Cells 0-2 Urine Bacteria 4+ Hyaline Casts 0-2 COVID-19 (ALIVIA) Negative COVID-19 Clin Com See Note Influenza Type A (BUFFY) Negative Influenza Type B (BUFFY) Negative Influenza A & B Note N Assessment and Plan (1) Severe sepsis: Status: Acute (2) UTI (urinary tract infection): Status: Acute (3) Acute lactic acidosis: Status: Acute (4) Class 1 obesity: Status: Acute Plan Patient is a 55-year-old male with a past medical history significant for type 2 diabetes and new diagnosis of prostate cancer, who presented to the ED due to fever, chills, urinary frequency and hematuria starting last night. UA positive for UTI, meets severe sepsis criteria severe sepsis secondary to UTI - levaquin due to severe sepsis and concern for prostatitis with prostate cancer - ID consult - follow urine culture and blood cultures - follow lactic acid - monitor CBC and BMP acute lactic acidosis secondary to sepsis, metformin likely contributing - follow lactic acid prostate cancer - continue outpt f/u T2DM - hold metformin and ozempic - SSI - A1C class 1 obesity - on ozempic med rec pending full code VTE prophy: lovenox Pt with severe sepsis secondary to UTI requiring admission for at least 2 midnights stay for IV abx and monitoring. Quality Stroke Does the patient have a stroke diagnosis?: No VTE Prior VTE?: No VTE Risk Level:: Medical - moderate - high VTE Device Contraindication: Treatment Not Indicated VTE Drug Contraindication: N/A - Med Ordered
[2025-05-21 01:58] LABS: ~Lactic Acid-LAB USE ONLY 2.3 mmol/L (0.5-2.0)
[2025-05-21 02:01] LABS: Cancel Lactic Acid Canceled
[2025-05-21] MEDS: Lactated Ringers 500 ML 999 ML IV (02:07)
[2025-05-21 05:12] LABS: Hematocrit 40.6 % (42.0-52.0); Hemoglobin 13.9 g/dl (14.0-18.0); Mean Corpuscular HGB Conc 34.2 g/dl (31.0-36.0); Mean Corpuscular Hemoglobin 29.4 pg (27.0-33.0); Mean Corpuscular Volume 86.0 fL (80.0-98.0); NRBC Abs Auto 0.000 X10*3/uL (0.0-0.012); NRBC Pct Auto 0.0 /100WBC (0.0-0.2); Platelet Count 213 X10*3/uL (160-400); Red Blood Count 4.72 X10*6/uL (4.60-5.80); White Blood Count 25.9 X10*3/uL (4.8-10.8)
[2025-05-21 05:23] LABS: Anion Gap 16 (12-20); Blood Urea Nitrogen 15 mg/dL (9-16); Calcium 8.5 mg/dL (8.4-10.2); Carbon Dioxide 22 mmol/L (22-29); Chloride 107 mmol/L (96-108); Creatinine Clr Calc Pharmacy 117.2; Estimated Glomerular Filt Rate > 60; Potassium 3.6 mmol/L (3.3-5.1); Sodium 141 mmol/L (135-145)
[2025-05-21 05:31] LABS: Hemoglobin A1C 215.5050 umol/L; Total Hemoglobin (HGBA1C) 3837.7213 umol/L
[2025-05-21 05:46] LABS: Band Neutrophils Percent 5 % (3-5); Lymphocytes Absolute Manual 0.8 X10*3/uL (1.2-4.9); Lymphocytes Percent Manual 3 % (20-40); Monocytes Absolute Manual 1.0 X10*3/uL (0.1-1.2); Monocytes Percent Manual 4 % (2-11); Neutrophils Absolute Manual 24.1 X10*3/uL (2.0-8.3); Neutrophils Percent Manual 88 % (45-73)
[2025-05-21 05:48] LABS: Dohle Bodies PRESENT; RBC Morphology NORMAL; Toxic Granulation PRESENT
--- NOTE | 2025-05-21 08:24 | PHA.MEDREC ---
Addendum entered by Yumiko Abrams RPh 05/21/25 09:11: MED REC REVIEWED BY [facility] Original Note: Pharmacy Consult ? Medication Reconciliation Pharmacy has completed the medication reconciliation. Patient was able to name all of his medications. Patient confirmed Ozempic 0.5 mg every Monday, last dose was 05/18/25. Patient had his medications yesterday.
[2025-05-21 08:31] LABS: Glucose, Whole Blood 246 mg/dL (60-115)
--- NOTE | 2025-05-21 10:26 | MHC.CM.PN ---
CM met with Patient at bedside, in the ED. 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 Home self care is Patient's goal and CM has initiated and will follow for dc planning. PCP is Dr. Toro Holman and will transport at dc.
[2025-05-21] MEDS: 0.9 % Sodium Chloride Flush 3 ML SYRINGE IVFLUSH ×3 (10:55→21:56)
[2025-05-21 11:44] LABS: Glucose, Whole Blood 224 mg/dL (60-115)
--- NOTE | 2025-05-21 12:00 | HO.PM.IMPN ---
Subjective Subjective Date of Service: 05/21/25 Interval History: fatigued Physical Exam Exam: Exam: General: AO X 3, no acute distress Resp: CTA bilateral, no accessory muscles used CVS: S1,S2,RRR GI: soft, non tender, non distended Neuro: motor grossly intact, alert Psych: appropriate affect, appropriate insight Vital Signs: Vital Signs: Last Vital Signs Temp 98.2 F 05/21/25 11:01 Pulse 114 H 05/21/25 11:01 Resp 18 05/21/25 11:01 BP 123/80 05/21/25 11:01 Pulse Ox 98 05/21/25 11:01 O2 Del Method Room Air 05/21/25 11:01 BMI result Body Mass Index 30.9 Objective Data Active Medications Acetaminophen (Acetaminophen 325 Mg Tablet) 975 mg PO Q6H PRN PRN Reason: Pain, Mild 1-3,fever,headache Last Admin: 05/21/25 11:02 Dose: 975 mg Documented By: LIBBY Calcium Carbonate (Calcium Carbonate 750 Mg Tab.Chew) 750 mg PO Q4H PRN PRN Reason: Heartburn Dextrose (Dextrose 50 % 25 Gm/50 Ml Syringe) 25 gm IVPUSH Q15M PRN; Protocol PRN Reason: per Hypoglycemia Standing Ord. Enoxaparin Sodium (Enoxaparin Sodium 40 Mg/0.4 Ml Syringe) 40 mg SUBCUT Q24H [facility] Last Admin: 05/21/25 00:55 Dose: 40 mg Documented By: DEVYNOPECarlos Glucose (Glucose Gel 15 Gm Gel..Gram.) 15 gm PO Q15M PRN; Protocol PRN Reason: per Hypoglycemia Standing Ord. Levofloxacin (Levaquin) 500 mg in 100 mls @ 100 mls/hr IV Q24H [facility] Insulin Human Lispro (Insulin Lispro 100 Unit/Ml 3 Ml Vial) 0 unit SUBCUT QIDACHS [facility]; Protocol Last Admin: 05/21/25 08:50 Dose: 4 unit Documented By: LIBBY Magnesium Hydroxide (Milk Of Magnesia 30 Ml Oral.Susp) 30 ml PO DAILY PRN PRN Reason: Constipation Melatonin (Melatonin 3 Mg Tablet) 6 mg PO BEDTIME PRN PRN Reason: Insomnia Ondansetron HCl (Ondansetron Hcl 4 Mg/2 Ml Vial) 4 mg IVPUSH Q8H PRN PRN Reason: Nausea and Vomiting Oxycodone HCl (Oxycodone Hcl Immed Release 5 Mg Tablet) 5 mg PO Q6H PRN PRN Reason: Pain, Severe (Pain Scale 7-10) Sodium Chloride (0.9 % Sodium Chloride Flush 3 Ml Syringe) 3 ml IVFLUSH QSHIFT [facility] Last Admin: 05/21/25 10:55 Dose: 3 ml Documented By: LIBBY Tramadol HCl (Tramadol Hcl 50 Mg Tablet) 50 mg PO Q6H PRN PRN Reason: Pain, Moderate(Pain Scale 4-6) Labs 05/21/25 03:50 05/21/25 03:50 Labs: Laboratory Results - last 24 hr 05/20/25 05/20/25 05/20/25 20:26 20:56 22:39 MCV 85.5 MCH 29.3 MCHC 34.2 RDW 12.5 Plt Count 223 MPV 9.2 L Immature Gran % (Auto) 1.2 H Neut % (Auto) 87.2 H Lymph % (Auto) 3.5 L [place] % (Auto) 7.8 Eos % (Auto) 0.0 Baso % (Auto) 0.3 Lymph # (Auto) 1.2 [place] # (Auto) 2.7 H Eos # (Auto) 0.0 Baso # (Auto) 0.1 Abs Immat Gran (auto) 0.40 H Absolute Neuts (auto) 30.1 H Absolute Nucleated RBC 0.000 Nucleated RBC % (auto) 0.0 Neutrophils % (Manual) Band Neutrophils % Lymphocytes % (Manual) Monocytes % (Manual) Abs Neuts (Manual) Lymphocytes # (Manual) Monocytes # (Manual) Toxic Granulation Dohle Bodies Platelet Estimate Plt Morphology Comment RBC Morphology Anion Gap 14 Estim Creat Clear Calc 102.5 Estimated GFR > 60 POC Glucose Random Glucose 227 H Estimat Average Glucose 163 Hemoglobin A1c % 7.3 H Lactic Acid 2.8 H* Lactic Acid F/U @ 2Hr 3.1 H* Lactic Acid F/U @ 4Hr Calcium 9.4 Total Bilirubin 0.7 AST 25 ALT 49 H Alkaline Phosphatase 62 Total Protein 7.4 Albumin 4.6 Lipase 19 Urine Color Dark Yellow Urine Appearance Cloudy Urine pH 5.5 Ur Specific [place] >= 1.030 H Urine Protein 100 (2+) H Urine Glucose (UA) 250 H Urine Ketones Trace Urine Blood Large (3+) H Urine Nitrite Positive H Ur Leukocyte Esterase Moderate (2+) H Urine RBC 11-20 H Urine WBC >50 H Ur Squamous Epith Cells 0-2 Urine Bacteria 4+ Hyaline Casts 0-2 COVID-19 (ALIVIA) Negative COVID-19 Clin Com See Note Influenza Type A (BUFFY) Negative Influenza Type B (BUFFY) Negative Influenza A & B Note N 05/21/25 05/21/25 05/21/25 01:29 03:50 08:28 MCV 86.0 MCH 29.4 MCHC 34.2 RDW 12.8 Plt Count 213 MPV 9.8 Immature Gran % (Auto) Cancelled Neut % (Auto) Cancelled Lymph % (Auto) Cancelled [place] % (Auto) Cancelled Eos % (Auto) Cancelled Baso % (Auto) Cancelled Lymph # (Auto) Cancelled [place] # (Auto) Cancelled Eos # (Auto) Cancelled Baso # (Auto) Cancelled Abs Immat Gran (auto) Cancelled Absolute Neuts (auto) Cancelled Absolute Nucleated RBC 0.000 Nucleated RBC % (auto) 0.0 Neutrophils % (Manual) 88 H Band Neutrophils % 5 Lymphocytes % (Manual) 3 L Monocytes % (Manual) 4 Abs Neuts (Manual) 24.1 H Lymphocytes # (Manual) 0.8 L Monocytes # (Manual) 1.0 Toxic Granulation PRESENT Dohle Bodies PRESENT Platelet Estimate NORMAL Plt Morphology Comment NORMAL RBC Morphology NORMAL Anion Gap 16 Estim Creat Clear Calc 117.2 Estimated GFR > 60 POC Glucose 246 H Random Glucose 175 H Estimat Average Glucose Hemoglobin A1c % Lactic Acid Lactic Acid F/U @ 2Hr Lactic Acid F/U @ 4Hr 2.3 H* Calcium 8.5 D Total Bilirubin AST ALT Alkaline Phosphatase Total Protein Albumin Lipase Urine Color Urine Appearance Urine pH Ur Specific [place] Urine Protein Urine Glucose (UA) Urine Ketones Urine Blood Urine Nitrite Ur Leukocyte Esterase Urine RBC Urine WBC Ur Squamous Epith Cells Urine Bacteria Hyaline Casts COVID-19 (ALIVIA) COVID-19 Clin Com Influenza Type A (BUFFY) Influenza Type B (BUFFY) Influenza A & B Note 05/21/25 11:41 MCV MCH MCHC RDW Plt Count MPV Immature Gran % (Auto) Neut % (Auto) Lymph % (Auto) [place] % (Auto) Eos % (Auto) Baso % (Auto) Lymph # (Auto) [place] # (Auto) Eos # (Auto) Baso # (Auto) Abs Immat Gran (auto) Absolute Neuts (auto) Absolute Nucleated RBC Nucleated RBC % (auto) Neutrophils % (Manual) Band Neutrophils % Lymphocytes % (Manual) Monocytes % (Manual) Abs Neuts (Manual) Lymphocytes # (Manual) Monocytes # (Manual) Toxic Granulation Dohle Bodies Platelet Estimate Plt Morphology Comment RBC Morphology Anion Gap Estim Creat Clear Calc Estimated GFR POC Glucose 224 H Random Glucose Estimat Average Glucose Hemoglobin A1c % Lactic Acid Lactic Acid F/U @ 2Hr Lactic Acid F/U @ 4Hr Calcium Total Bilirubin AST ALT Alkaline Phosphatase Total Protein Albumin Lipase Urine Color Urine Appearance Urine pH Ur Specific [place] Urine Protein Urine Glucose (UA) Urine Ketones Urine Blood Urine Nitrite Ur Leukocyte Esterase Urine RBC Urine WBC Ur Squamous Epith Cells Urine Bacteria Hyaline Casts COVID-19 (ALIVIA) COVID-19 Clin Com Influenza Type A (BUFFY) Influenza Type B (BUFFY) Influenza A & B Note Microbiology Microbiology Results: Microbiology 05/20/25 21:00 Blood Culture - Preliminary Blood - Venous Prelim: GNR Gram Stain only Assessment and Plan (1) UTI (urinary tract infection): Status: Acute Plan 55M PMH prostate cancer, DM, presented with fevers Severe sepsis secondary to acute urinary tract infection complicated by bacteremia with Gram-negative rods Continue levofloxacin, follow up cultures Diabetes Hold orals, continue insulin Prostate cancer Outpatient follow up Obesity Ozempic on hold DVT prophylaxis with Lovenox Full code reason for continued hospitalization: Awaiting cultures and defervescence Quality Stroke Does the patient have a stroke diagnosis?: No VTE Prior VTE?: No VTE Risk Level:: Medical - moderate - high VTE Device Contraindication: Treatment Not Indicated VTE Drug Contraindication: N/A - Med Ordered
--- NOTE | 2025-05-21 16:37 | P.CNID_ITS ---
History of Present Illness Data of Consult Service Date: 05/21/25 Requesting physician: Carlos Hay Primary Care Provider: Toro Holman III, MD HPI Reason for consult: chills and hematuria He presents with hematuria as well as chills for a day. He has prostate cancer and is going to get prostatectomy soon. His father had prostate cancer at 60. Review of Systems 2 Review of Systems: Yes all other systems are reviewed and are negative PMF Past Medical History Medical History Prostate cancer Social History Social History Smoked in Last 30 Days: No Use of substances other than those prescribed or required for medical reasons: No Advance Directives: No Advance Directives Information Provided: No service: Yes Meds Allergies Allergy/AdvReac Type Severity Reaction Status Date / Time No Known Allergies Allergy Verified 05/20/25 19:46 Active Medications: Current Medications Acetaminophen (Acetaminophen 325 Mg Tablet) 975 mg PO Q6H PRN PRN Reason: Pain, Mild 1-3,fever,headache Last Admin: 05/21/25 15:47 Dose: 975 mg Calcium Carbonate (Calcium Carbonate 750 Mg Tab.Chew) 750 mg PO Q4H PRN PRN Reason: Heartburn Dextrose (Dextrose 50 % 25 Gm/50 Ml Syringe) 25 gm IVPUSH Q15M PRN; Protocol PRN Reason: per Hypoglycemia Standing Ord. Enoxaparin Sodium (Enoxaparin Sodium 40 Mg/0.4 Ml Syringe) 40 mg SUBCUT Q24H [facility] Last Admin: 05/21/25 00:55 Dose: 40 mg Glucose (Glucose Gel 15 Gm Gel..Gram.) 15 gm PO Q15M PRN; Protocol PRN Reason: per Hypoglycemia Standing Ord. Levofloxacin (Levaquin) 500 mg in 100 mls @ 100 mls/hr IV Q24H [facility] Insulin Human Lispro (Insulin Lispro 100 Unit/Ml 3 Ml Vial) 0 unit SUBCUT QIDACHS [facility]; Protocol Last Admin: 05/21/25 12:06 Dose: 4 unit Magnesium Hydroxide (Milk Of Magnesia 30 Ml Oral.Susp) 30 ml PO DAILY PRN PRN Reason: Constipation Melatonin (Melatonin 3 Mg Tablet) 6 mg PO BEDTIME PRN PRN Reason: Insomnia Ondansetron HCl (Ondansetron Hcl 4 Mg/2 Ml Vial) 4 mg IVPUSH Q8H PRN PRN Reason: Nausea and Vomiting Oxycodone HCl (Oxycodone Hcl Immed Release 5 Mg Tablet) 5 mg PO Q6H PRN PRN Reason: Pain, Severe (Pain Scale 7-10) Sodium Chloride (0.9 % Sodium Chloride Flush 3 Ml Syringe) 3 ml [facility]FLUSH [facility] Last Admin: 05/21/25 15:49 Dose: 3 ml Tramadol HCl (Tramadol Hcl 50 Mg Tablet) 50 mg PO Q6H PRN PRN Reason: Pain, Moderate(Pain Scale 4-6) Home Medications ?Medication ?Instructions ?Recorded ?Confirmed ?Last Taken ?Type celecoxib 200 mg capsule 200 mg PO BID 05/21/2505/2105/20/25 History metformin 500 mg tablet 1,000 mg PO BID 05/21/2505/20/25 History semaglutide 0.25 mg or 0.5 mg (2 0.5 mg subcut WINTERS 05/0105/21/25 05/18/25 History mg/3 mL) subcutaneous pen injector (Ozempic) Physical Exam 2 Vital Signs: Vital Signs: Last Vital Signs Temp 101.1 F H 05/21/25 15:44 Pulse 113 H 05/21/25 15:44 Resp 22 H 05/21/25 15:44 BP 119/77 05/21/25 15:44 Pulse Ox 97 05/21/25 15:44 O2 Del Method Room Air 05/21/25 15:44 BMI result Body Mass Index 30.9 Const: General: cooperative HEENT: Head: Yes normal to inspection Face and sinus: Yes normal facial exam Mouth: Normal oral and palatal mucosa present Teeth and gingiva: d entition normal Eyes: General: appearance normal, both eyes and all related structures P upils: Equal, round and reactive pupils present Resp: Effort & Inspection: normal respiratory effort Cardio: Rate: regular rate Rhythm: regular rhythm GI: Palpation (GI): Soft to palpation and nontender : General: Yes no CVA tenderness Back/Spine/Pelvis: Back: no CVA tenderness Skin: General skin exam: no rashes or lesions noted Neuro: General: moves all extremities Cranial nerves: Yes Equal, round and reactive pupils present Extrem: General: Yes normal to inspection Psych: Appearance: grossly normal Results Labs 05/21/25 03:50 05/21/25 03:50 Labs: Short CBC 05/20/25 05/21/25 Range/Units 20:26 03:50 WBC 34.5 H* 25.9 H (4.8-10.8) X10*3/uL Hgb 15.1 13.9 L (14.0-18.0) g/dl Hct 44.1 40.6 L (42.0-52.0) % Plt Count 223 213 (160-400) X10*3/uL BMP 05/20/25 05/21/25 20:26 03:50 Sodium 135 141 Potassium 4.1 3.6 Chloride 102 107 Carbon Dioxide 23 22 BUN 16 15 Creatinine 0.96 0.84 Calcium 9.4 8.5 D Liver Function 05/20/25 Range/Units 20:26 Total Bilirubin 0.7 (0.0-1.0) mg/dL AST 25 (5-37) U/L ALT 49 H (0-40) U/L Alkaline Phosphatase 62 (39-117) U/L Albumin 4.6 (3.5-5.0) g/dL Urine 05/20/25 Range/Units 20:26 Urine Color Dark Yellow Urine Appearance Cloudy Urine pH 5.5 (5.0-9.0) Ur Specific [place] >= 1.030 H (1.005-1.025) Urine Protein 100 (2+) H (Neg-Trace) mg/dL Urine Glucose (UA) 250 H (Negative) mg/dL Microbiology Microbiology Results: Microbiology 05/20/25 Unknown Urine clean catch - Clean Catch Midstream Urine Culture - Preliminary Gram negative emigdio 05/20/25 21:00 Blood - Venous Blood Culture - Preliminary Prelim: GNR Gram Stain only Assessment and Plan (1) Sepsis secondary to UTI: Status: Acute (2) UTI (urinary tract infection): Status: Acute Plan He has gram negative emigdio bacteremia He has possible E coli or Klebsiella. Change Levaquin to Ceftriaxone if able and then if sensitive 10 d total po antibiotics. Follow Urology.
[2025-05-21 18:11] LABS: Glucose, Whole Blood 206 mg/dL (60-115)
[2025-05-21 21:31] LABS: Glucose, Whole Blood 189 mg/dL (60-115)
[2025-05-22] VITALS (7 sets, daily range): BP systolic 106–135; BP diastolic 62–81; PULSE 88–124; RESP 17–18; TEMP 36.7–39.4; O2SAT 95–98
[2025-05-22 06:52] LABS: MANUAL DIFF FLAG NO
[2025-05-22 06:59] LABS: Glucose, Whole Blood 142 mg/dL (60-115)
[2025-05-22 07:02] LABS: Hematocrit 42.2 % (42.0-52.0); Hemoglobin 13.6 g/dl (14.0-18.0); Imm Gran Abs Auto 0.13 X10*3/uL (0.00-0.03); Imm Gran Pct Auto 0.9 % (0.0-0.4); Lymphocytes Absolute Auto 0.9 X10*3/uL (1.2-4.9); Mean Corpuscular HGB Conc 32.2 g/dl (31.0-36.0); Mean Corpuscular Hemoglobin 28.5 pg (27.0-33.0); Mean Corpuscular Volume 88.5 fL (80.0-98.0); NRBC Abs Auto 0.000 X10*3/uL (0.0-0.012); NRBC Pct Auto 0.0 /100WBC (0.0-0.2); Platelet Count 180 X10*3/uL (160-400); Red Blood Count 4.77 X10*6/uL (4.60-5.80); White Blood Count 14.3 X10*3/uL (4.8-10.8)
[2025-05-22 07:54] LABS: Blood Urea Nitrogen 11 mg/dL (9-16); Calcium 9.3 mg/dL (8.4-10.2); Creatinine Clr Calc Pharmacy 110.6; Estimated Glomerular Filt Rate > 60
[2025-05-22 08:02] LABS: Anion Gap 11 (12-20); Carbon Dioxide 28 mmol/L (22-29); Chloride 108 mmol/L (96-108); Potassium 4.1 mmol/L (3.3-5.1); Sodium 143 mmol/L (135-145)
[2025-05-22] MEDS: 0.9 % Sodium Chloride Flush 3 ML SYRINGE IVFLUSH ×3 (08:12→19:27)
[2025-05-22 10:55] LABS: Glucose, Whole Blood 221 mg/dL (60-115)
--- NOTE | 2025-05-22 11:19 | HO.PM.IMPN ---
Subjective Subjective Date of Service: 05/22/25 Interval History: still febrile Physical Exam Vital Signs: Vital Signs: Last Vital Signs Temp 102.5 F H 05/22/25 11:02 Pulse 124 H 05/22/25 11:02 Resp 18 05/22/25 11:02 BP 127/80 05/22/25 11:02 Pulse Ox 97 05/22/25 11:02 O2 Del Method Room Air 05/22/25 11:02 BMI result Body Mass Index 30.9 Const: General: cooperative HEENT: Head: Yes normal to inspection Face and sinus: Yes normal facial exam Mouth: Normal oral and palatal mucosa present Teeth and gingiva: dentition normal Eyes: General: appearance normal, both eyes and all related structures Pupils: Equal, round and reactive pupils present Resp: Effort & Inspection: normal respiratory effort Cardio: Rate: regular rate Rhythm: regular rhythm GI: Palpation (GI): Soft to palpation and nontender : General: Yes no CVA tenderness Back/Spine/Pelvis: Back: no CVA tenderness Skin: General skin exam: no rashes or lesions noted Neuro: General: moves all extremities Cranial nerves: Yes Equal, round and reactive pupils present Extrem: General: Yes normal to inspection Psych: Appearance: grossly normal Objective Data Active Medications Acetaminophen (Acetaminophen 325 Mg Tablet) 975 mg PO Q6H PRN PRN Reason: Pain, Mild 1-3,fever,headache Last Admin: 05/22/25 00:11 Dose: 975 mg Documented By: LG Calcium Carbonate (Calcium Carbonate 750 Mg Tab.Chew) 750 mg PO Q4H PRN PRN Reason: Heartburn Dextrose (Dextrose 50 % 25 Gm/50 Ml Syringe) 25 gm IVPUSH Q15M PRN; Protocol PRN Reason: per Hypoglycemia Standing Ord. Enoxaparin Sodium (Enoxaparin Sodium 40 Mg/0.4 Ml Syringe) 40 mg SUBCUT Q24H [facility] Last Admin: 05/22/25 00:10 Dose: 40 mg Documented By: LG Glucose (Glucose Gel 15 Gm Gel..Gram.) 15 gm PO Q15M PRN; Protocol PRN Reason: per Hypoglycemia Standing Ord. Ceftriaxone Sodium 1 gm/ (Sodium Chloride) 50 mls @ 100 mls/hr IV Q24H [facility] Last Infusion: 05/22/25 08:40 Dose: Infused Documented By: TRA Insulin Human Lispro (Insulin Lispro 100 Unit/Ml 3 Ml Vial) 0 unit SUBCUT QIDACHS [facility]; Protocol Last Admin: 05/22/25 07:51 Dose: Not Given Documented By: TRA Non-Admin Reason: No Insulin Coverage Magnesium Hydroxide (Milk Of Magnesia 30 Ml Oral.Susp) 30 ml PO DAILY PRN PRN Reason: Constipation Melatonin (Melatonin 3 Mg Tablet) 6 mg PO BEDTIME PRN PRN Reason: Insomnia Ondansetron HCl (Ondansetron Hcl 4 Mg/2 Ml Vial) 4 mg IVPUSH Q8H PRN PRN Reason: Nausea and Vomiting Oxycodone HCl (Oxycodone Hcl Immed Release 5 Mg Tablet) 5 mg PO Q6H PRN PRN Reason: Pain, Severe (Pain Scale 7-10) Sodium Chloride (0.9 % Sodium Chloride Flush 3 Ml Syringe) 3 ml IVFLUSH [facility] Last Admin: 05/22/25 08:12 Dose: 3 ml Documented By: TRA Tramadol HCl (Tramadol Hcl 50 Mg Tablet) 50 mg PO Q6H PRN PRN Reason: Pain, Moderate(Pain Scale 4-6) Labs 05/22/25 06:23 05/22/25 06:23 Labs: Laboratory Results - last 24 hr 05/21/25 05/21/25 05/21/25 11:41 18:06 21:28 MCV MCH MCHC RDW Plt Count MPV Immature Gran % (Auto) Neut % (Auto) Lymph % (Auto) [place] % (Auto) Eos % (Auto) Baso % (Auto) Lymph # (Auto) [place] # (Auto) Eos # (Auto) Baso # (Auto) Abs Immat Gran (auto) Absolute Neuts (auto) Absolute Nucleated RBC Nucleated RBC % (auto) Anion Gap Estim Creat Clear Calc Estimated GFR POC Glucose 224 H 206 H 189 H Random Glucose Calcium 05/22/25 05/22/25 05/22/25 06:23 06:55 10:49 MCV 88.5 MCH 28.5 MCHC 32.2 RDW 12.7 Plt Count 180 MPV 9.6 Immature Gran % (Auto) 0.9 H Neut % (Auto) 84.9 H Lymph % (Auto) 6.5 L [place] % (Auto) 6.4 Eos % (Auto) 0.8 Baso % (Auto) 0.5 Lymph # (Auto) 0.9 L [place] # (Auto) 0.9 Eos # (Auto) 0.1 Baso # (Auto) 0.1 Abs Immat Gran (auto) 0.13 H Absolute Neuts (auto) 12.1 H Absolute Nucleated RBC 0.000 Nucleated RBC % (auto) 0.0 Anion Gap 11 L Estim Creat Clear Calc 110.6 Estimated GFR > 60 POC Glucose 142 H 221 H Random Glucose 174 H Calcium 9.3 D Microbiology Microbiology Results: Microbiology 05/20/25 21:00 Blood Culture - Preliminary Blood - Venous Gram negative emigdio 05/20/25 Unknown Urine Culture - Final Urine clean catch - Clean Catch Midstream Escherichia coli 05/20/25 20:26 Blood Culture - Preliminary Blood - Venous No growth after 24 hours. Assessment and Plan (1) UTI (urinary tract infection): Status: Acute Plan 55M PMH prostate cancer, DM, presented with fevers Severe sepsis secondary to acute urinary tract infection complicated by bacteremia with Gram-negative rods urine grew ecoli with intermideat sensitivity to cipro will change to ceftriaxone, follow up blood cultures Diabetes Hold orals, continue insulin Prostate cancer Outpatient follow up Obesity Ozempic on hold DVT prophylaxis with Lovenox Full code reason for continued hospitalization: Awaiting cultures and defervescence, still febrile Quality Stroke Does the patient have a stroke diagnosis?: No VTE Prior VTE?: No VTE Risk Level:: Medical - moderate - high VTE Device Contraindication: Treatment Not Indicated VTE Drug Contraindication: N/A - Med Ordered
--- NOTE | 2025-05-22 14:05 | PC.NURSE ---
Pt had a mild headache and a temp of 102.5 at 1100. MD notified. Pt given PO Tylenol. Fever reassessed at 1330. Rectal temp 103. MD ordered ibuprofen. Pt has had no other complaints today. He is flushed. Urinating frequently, small amounts, getting up independently to toilet. BMx2, per his report. Eating normally. He has had multiple visitors today, including his .
[2025-05-22 15:11] LABS: Glucose, Whole Blood 235 mg/dL (60-115)
[2025-05-22 17:37] LABS: Glucose, Whole Blood 158 mg/dL (60-115)
[2025-05-22 19:55] LABS: Glucose, Whole Blood 200 mg/dL (60-115)
[2025-05-23] VITALS (8 sets, daily range): BP systolic 105–155; BP diastolic 75–86; PULSE 87–110; RESP 17–18; TEMP 37.3–39.2; O2SAT 95–98
[2025-05-23 07:02] LABS: Glucose, Whole Blood 162 mg/dL (60-115)
[2025-05-23 07:43] LABS: MANUAL DIFF FLAG NO
[2025-05-23 07:47] LABS: Hematocrit 40.9 % (42.0-52.0); Hemoglobin 13.9 g/dl (14.0-18.0); Imm Gran Abs Auto 0.07 X10*3/uL (0.00-0.03); Imm Gran Pct Auto 1.0 % (0.0-0.4); Lymphocytes Absolute Auto 1.2 X10*3/uL (1.2-4.9); Mean Corpuscular HGB Conc 34.0 g/dl (31.0-36.0); Mean Corpuscular Hemoglobin 29.1 pg (27.0-33.0); Mean Corpuscular Volume 85.6 fL (80.0-98.0); NRBC Abs Auto 0.000 X10*3/uL (0.0-0.012); NRBC Pct Auto 0.0 /100WBC (0.0-0.2); Platelet Count 230 X10*3/uL (160-400); Red Blood Count 4.78 X10*6/uL (4.60-5.80); White Blood Count 6.9 X10*3/uL (4.8-10.8)
[2025-05-23 08:00] LABS: Anion Gap 12 (12-20); Blood Urea Nitrogen 13 mg/dL (9-16); Calcium 9.3 mg/dL (8.4-10.2); Carbon Dioxide 25 mmol/L (22-29); Chloride 106 mmol/L (96-108); Creatinine Clr Calc Pharmacy 100.4; Estimated Glomerular Filt Rate > 60; Potassium 3.7 mmol/L (3.3-5.1); Sodium 139 mmol/L (135-145)
[2025-05-23] MEDS: 0.9 % Sodium Chloride Flush 3 ML SYRINGE IVFLUSH ×2 (08:07→19:47)
[2025-05-23 11:43] LABS: Glucose, Whole Blood 202 mg/dL (60-115)
--- NOTE | 2025-05-23 11:53 | P.PNIM_ITS ---
Subjective Subjective Date of Service: 05/23/25 Interval History: still febrile Physical Exam 2 Exam: Exam: General: AO X 3, no acute distress Resp: CTA bilateral, no accessory muscles used CVS: S1,S2,RRR GI: soft, non tender, non distended Neuro: motor grossly intact, alert Psych: appropriate affect, appropriate insight Vital Signs: Vital Signs: Last Vital Signs Temp 99.6 F 05/23/25 08:03 Pulse 94 05/23/25 07:37 Resp 17 05/23/25 07:37 BP 105/75 05/23/25 07:37 Pulse Ox 96 05/23/25 07:37 O2 Del Method Room Air 05/23/25 07:37 BMI result Body Mass Index 30.9 Objective Data Active Medications Acetaminophen (Acetaminophen 325 Mg Tablet) 975 mg PO Q6H PRN PRN Reason: Pain, Mild 1-3,fever,headache Last Admin: 05/23/25 03:32 Dose: 975 mg Documented By: JAGDISH Calcium Carbonate (Calcium Carbonate 750 Mg Tab.Chew) 750 mg PO Q4H PRN PRN Reason: Heartburn Dextrose (Dextrose 50 % 25 Gm/50 Ml Syringe) 25 gm IVPUSH Q15M PRN; Protocol PRN Reason: per Hypoglycemia Standing Ord. Enoxaparin Sodium (Enoxaparin Sodium 40 Mg/0.4 Ml Syringe) 40 mg SUBCUT Q24H [facility] Last Admin: 05/22/25 23:27 Dose: 40 mg Documented By: JAGDISH Glucose (Glucose Gel 15 Gm Gel..Gram.) 15 gm PO Q15M PRN; Protocol PRN Reason: per Hypoglycemia Standing Ord. Ceftriaxone Sodium 1 gm/ (Sodium Chloride) 50 mls @ 100 mls/hr IV Q24H [facility] Last Infusion: 05/23/25 08:48 Dose: Infused Documented By: LILLY Ibuprofen (Ibuprofen 400 Mg Tablet) 400 mg PO Q6H PRN PRN Reason: Fever >101 Last Admin: 05/23/25 05:57 Dose: 400 mg Documented By: JAGDISH Insulin Human Lispro (Insulin Lispro 100 Unit/Ml 3 Ml Vial) 0 unit SUBCUT QIDACHS [facility]; Protocol Last Admin: 05/23/25 11:48 Dose: 4 unit Documented By: LILLY Magnesium Hydroxide (Milk Of Magnesia 30 Ml Oral.Susp) 30 ml PO DAILY PRN PRN Reason: Constipation Melatonin (Melatonin 3 Mg Tablet) 6 mg PO BEDTIME PRN PRN Reason: Insomnia Ondansetron HCl (Ondansetron Hcl 4 Mg/2 Ml Vial) 4 mg IVPUSH Q8H PRN PRN Reason: Nausea and Vomiting Oxycodone HCl (Oxycodone Hcl Immed Release 5 Mg Tablet) 5 mg PO Q6H PRN PRN Reason: Pain, Severe (Pain Scale 7-10) Sodium Chloride (0.9 % Sodium Chloride Flush 3 Ml Syringe) 3 ml IVFLUSH QSHIFT [facility] Last Admin: 05/23/25 08:07 Dose: 3 ml Documented By: DEVYNOPEFELICIANO Tramadol HCl (Tramadol Hcl 50 Mg Tablet) 50 mg PO Q6H PRN PRN Reason: Pain, Moderate(Pain Scale 4-6) Labs 05/23/25 07:34 05/23/25 07:34 Labs: Laboratory Results - last 24 hr 05/22/25 05/22/25 05/22/25 06:23 15:05 17:34 MCV Cancelled MCH Cancelled MCHC Cancelled RDW Cancelled Plt Count Cancelled MPV Cancelled Immature Gran % (Auto) Neut % (Auto) Lymph % (Auto) [place] % (Auto) Eos % (Auto) Baso % (Auto) Lymph # (Auto) [place] # (Auto) Eos # (Auto) Baso # (Auto) Abs Immat Gran (auto) Absolute Neuts (auto) Absolute Nucleated RBC Cancelled Nucleated RBC % (auto) Cancelled Anion Gap Estim Creat Clear Calc Estimated GFR POC Glucose 235 H 158 H Random Glucose Calcium 05/22/25 05/23/25 05/23/25 19:16 06:58 07:34 MCV 85.6 MCH 29.1 MCHC 34.0 RDW 12.3 Plt Count 230 D MPV 9.3 L Immature Gran % (Auto) 1.0 H Neut % (Auto) 72.0 Lymph % (Auto) 16.8 L [place] % (Auto) 8.6 Eos % (Auto) 0.9 Baso % (Auto) 0.7 Lymph # (Auto) 1.2 [place] # (Auto) 0.6 Eos # (Auto) 0.1 Baso # (Auto) 0.1 Abs Immat Gran (auto) 0.07 H Absolute Neuts (auto) 4.9 Absolute Nucleated RBC 0.000 Nucleated RBC % (auto) 0.0 Anion Gap 12 Estim Creat Clear Calc 100.4 Estimated GFR > 60 POC Glucose 200 H 162 H Random Glucose 171 H Calcium 9.3 05/23/25 11:38 MCV MCH MCHC RDW Plt Count MPV Immature Gran % (Auto) Neut % (Auto) Lymph % (Auto) [place] % (Auto) Eos % (Auto) Baso % (Auto) Lymph # (Auto) [place] # (Auto) Eos # (Auto) Baso # (Auto) Abs Immat Gran (auto) Absolute Neuts (auto) Absolute Nucleated RBC Nucleated RBC % (auto) Anion Gap Estim Creat Clear Calc Estimated GFR POC Glucose 202 H Random Glucose Calcium Microbiology Microbiology Results: Microbiology 05/20/25 21:00 Blood Culture - Final Blood - Venous Escherichia coli 05/20/25 20:26 Blood Culture - Preliminary Blood - Venous No growth after 48 hours. Assessment and Plan (1) UTI (urinary tract infection): Status: Acute Plan 55M PMH prostate cancer, DM, presented with fevers Severe sepsis secondary to acute urinary tract infection complicated by bacteremia urine and blood grew ecoli with intermideat sensitivity to cipro changed to ceftriaxone Diabetes Hold orals, continue insulin Prostate cancer Outpatient follow up Obesity Ozempic on hold DVT prophylaxis with Lovenox Full code reason for continued hospitalization: Awaiting defervescence, still febrile Quality Stroke Does the patient have a stroke diagnosis?: No VTE Prior VTE?: No VTE Risk Level:: Medical - moderate - high VTE Device Contraindication: Treatment Not Indicated VTE Drug Contraindication: N/A - Med Ordered
[2025-05-23 15:35] LABS: Glucose, Whole Blood 187 mg/dL (60-115)
--- NOTE | 2025-05-23 16:17 | MHC.CM.PN ---
EMR REVIEWED AND PER MD ROUNDS, PATIENT IS NOT MEDICALLY CLEARED FOR DISCHARGE DUE TO MANAGEMENT OF SEPSIS/UTI/BACTEREMIA.
[2025-05-23 19:43] LABS: Glucose, Whole Blood 174 mg/dL (60-115)
[2025-05-24 02:53] VITALS: BP 121/80; PULSE 90; RESP 18; TEMP 37; O2SAT 97
[2025-05-24 07:54] LABS: Glucose, Whole Blood 210 mg/dL (60-115)
[2025-05-24 08:00] VITALS: BP 126/83; PULSE 82; RESP 16; TEMP 36.3; O2SAT 96
--- NOTE | 2025-05-24 08:40 | PM.DS ---
DS: Providers Provider Date of Service: 05/24/25 Date of admission: 05/21/25 03:17 Date of discharge: 05/24/25 Primary care physician: Toro Holman III, MD Consults: 05/21/25 00:39 Consult to Infectious Diseases Routine Consulting Provider: [facility] Reason for consultation: severe sepsis, UTI, prostate ca Has provider been notified: No DS: Diagnosis Discharge Diagnosis (1) UTI (urinary tract infection): Status: Acute DS: Summary Hospital Course Hospital Course: from initial hpi: 55-year-old male with a past medical history significant for type 2 diabetes and new diagnosis of prostate cancer, who presented to the ED due to fever, chills, urinary frequency and hematuria starting last night. He reports increased frequency of bowel movements but denies any diarrhea, abdominal pain or flank pain. He has had poor appetite, fatigue and body aches. He denies any chest pain, shortness of breath, nausea or vomiting. He was diagnosed with prostate cancer back in December and reports it is low-grade and he is scheduled for a consultation for prostatectomy this May. He denies any rectal pain or lower abdominal pain. hospital course: Was admitted for severe sepsis secondary to acute urinary tract infection due to prostate cancer with urinary retention complicated by bacteremia. Urine and blood culture grew E coli. Was initially treated with levofloxacin but turned out to be intermittently sensitive so was changed to ceftriaxone. Sepsis eventually resolved and patient's symptoms improved. On discharge we will continue 11 more days of cefuroxime and will follow up with Urology. Patient has also been started on tamsulosin. For diabetes with hyperglycemia was treated with insulin on discharge will resume orals. For obesity weight loss is encouraged. Time Attestation Discharge Coordination Time (in mins): 33 Quality: Safe Use of Opioids Does Pt have an Active Cancer Diagnosis on the Problem List?: Yes Opioid Measure Date for [facility] Report: 04/24/25 Opioid Measure Time for [facility] Report: 09:23 Quality: Stroke Does the patient have a stroke diagnosis?: No Physical Exam Exam: Exam: General: AO X 3, no acute distress Resp: CTA bilateral, no accessory muscles used CVS: S1,S2,RRR GI: soft, non tender, non distended Neuro: motor grossly intact, alert Psych: appropriate affect, appropriate insight Vital Signs: Vital Signs: Last Vital Signs Temp 97.4 F 05/24/25 08:00 Pulse 82 05/24/25 08:00 Resp 16 05/24/25 08:00 BP 126/83 05/24/25 08:00 Pulse Ox 96 05/24/25 08:00 O2 Del Method Room Air 05/24/25 08:00 BMI result Body Mass Index 30.9 DS: Data Data Completed and Pending Labs on day of discharge: Laboratory Results - last 24 hr 05/23/25 05/23/25 05/23/25 11:38 15:24 19:39 POC Glucose 202 H 187 H 174 H 05/24/25 07:52 POC Glucose 210 H Preliminary micro results at discharge 05/20/25 20:26 Blood Culture - Preliminary Blood - Venous No growth after 48 hours. Discharge Plan Discharge Anticipated Discharge Date/Time: 05/24/25 08:38 Patient Disposition: Home, Self-Care Discharge Diagnosis: uti Referrals: Toro Holman III, MD [Primary Care Provider, Medical] - 1 Week Discharge Medications: New cefuroxime axetil 500 mg tablet 500 mg PO BID Qty: 22 0RF tamsulosin 0.4 mg capsule 0.4 mg PO BEDTIME Qty: 90 0RF Continued celecoxib 200 mg capsule 200 mg PO BID metformin 500 mg tablet 1,000 mg PO BID Ozempic 0.25 mg or 0.5 mg (2 mg/3 mL) pen injector 0.5 mg subcut [place] Discharge Orders: Discharge Order (Routine); Ordered 05/24/25 Ordered By: Carlos Hay Diet: Advance to usual diet Activity on Discharge: As tolerated Stand Alone Forms: Patient Portal Discharge page Print Language: Slovenian Care Plan Goals: recovery Health Concerns: uti Plan of Treatment: 11 more days ceftin, start flomax, follow up urology Assessment: see above Patient Instructions: Urinary Tract Infection in Men (DC)
== END 2025-05-24 09:33 | disposition home or self-care (01) | DRG 720 ==
LOC: HO.ED 05-21 00:15 → HO.EDOVER 05-21 03:17 → HO.IMC 05-21 19:05 → HO.S3 05-23 22:02
PROVIDERS: Physician Assistant; Admitting Provider Physician Assistant; Emergency Provider Emergency Medicine; PCP Internal Medicine; Visit Provider Internal Medicine
DX: A41.9 Sepsis, unspecified organism (principal); B96.20 Unspecified Escherichia coli [E. coli] as the cause of diseases classified elsewhere; C61 Malignant neoplasm of prostate; E11.9 Type 2 diabetes mellitus without complications; E66.811 Obesity, class 1; N39.0 Urinary tract infection, site not specified; R31.9 Hematuria, unspecified; Z71.3 Dietary counseling and surveillance; Z68.30 Body mass index [BMI] 30.0-30.9, adult; R65.20 Severe sepsis without septic shock; Z20.822 Contact with and (suspected) exposure to COVID-19; Z79.84 Long term (current) use of oral hypoglycemic drugs; Z79.899 Other long term (current) drug therapy
CPT/HCPCS: 36415; 71046; 74177; 80048; 80053; 81001; 82947; 83036; 83605; 83690; 85007; 85025; 85027; 87040; 87077; 87086; 87088; 87186; 87205; 87502; 87635; 93005; 99285; J0696; J1650; J1956; J7120; Q9967

== ENCOUNTER → 2025-05-20 19:47 | Outpatient (BNV) | payer OTHER, SELFPAY | PROVIDERS: Admitting Provider Physician Assistant; Emergency Provider Emergency Medicine; PCP Internal Medicine; Visit Provider Internal Medicine Cardiovascular Disease | DX: R00.0 Tachycardia, unspecified (principal) | CPT/HCPCS: 93010 ==

== ENCOUNTER → 2025-05-20 19:47 | Outpatient (BNV) | payer OTHER, SELFPAY | PROVIDERS: Emergency Provider Emergency Medicine; PCP Internal Medicine; Visit Provider Student in an Organized Health Care Education/Training Program | DX: N40.0 Benign prostatic hyperplasia without lower urinary tract symptoms (principal); K40.90 Unilateral inguinal hernia, without obstruction or gangrene, not specified as recurrent; N32.89 Other specified disorders of bladder | CPT/HCPCS: 71046; 74177 ==

== ENCOUNTER → 2025-05-21 03:17 | Outpatient (BNV) | payer OTHER, SELFPAY | PROVIDERS: Admitting Provider Physician Assistant; Emergency Provider Emergency Medicine; PCP Internal Medicine; Visit Provider Internal Medicine | DX: N39.0 Urinary tract infection, site not specified (principal) | CPT/HCPCS: 99233 ==

== ENCOUNTER → 2025-05-21 03:17 | Outpatient (BNV) | payer OTHER, SELFPAY | PROVIDERS: Admitting Provider Physician Assistant; Emergency Provider Emergency Medicine; PCP Internal Medicine; Visit Provider Internal Medicine | DX: A41.9 Sepsis, unspecified organism (principal); N39.0 Urinary tract infection, site not specified | CPT/HCPCS: 99222 ==